=== PATIENT | male | born 1980 | race Caucasian/White ===

== ENCOUNTER 2019-12-09 11:24 | Emergency (ER) | payer BC, OTHER ==
[~2019-12-09] VITALS: Ht 190.5 cm; Wt 96.8 kg
[~2019-12-09 11:24] MED LIST: IBUP-1051 PO; NAPR-232 PO; RANI300T4 PO
[2019-12-09 12:30] VITALS: BP 133/89
== END 2019-12-09 12:31 | disposition home or self-care (01) ==
LOC: ER 11:25
DX: S89.91XA Unspecified injury of right lower leg, initial encounter (principal); Z88.5 Allergy status to narcotic agent; Z88.7 Allergy status to serum and vaccine; Z79.899 Other long term (current) drug therapy; X58.XXXA Exposure to other specified factors, initial encounter; Y93.89 Activity, other specified; Y92.89 Other specified places as the place of occurrence of the external cause; Y99.8 Other external cause status
CPT/HCPCS: 73560; 99284